=== PATIENT | male | born 1995 | race Caucasian/White ===

== ENCOUNTER 2017-06-12 09:25 | Emergency (ER) | payer OTHER ==
[~2017-06-12] VITALS: Ht 185.4 cm; Wt 62.8 kg
[2017-06-12 09:33] VITALS: BP 110/72
== END 2017-06-12 10:50 | disposition home or self-care (01) ==
LOC: ED 10:01
DX: J45.31 Mild persistent asthma with (acute) exacerbation (principal)
CPT/HCPCS: 71046; 99284

== ENCOUNTER 2017-11-15 11:48 | Emergency (ER) | payer SELFPAY ==
[~2017-11-15] VITALS: Ht 185.4 cm; Wt 64.2 kg
[2017-11-15 11:48] VITALS: BP 119/71
== END 2017-11-15 13:26 | disposition home or self-care (01) ==
LOC: ED 12:59
DX: M94.0 Chondrocostal junction syndrome [Tietze] (principal); J00 Acute nasopharyngitis [common cold]; M54.6 Pain in thoracic spine
CPT/HCPCS: 71046; 93005; 99283; 99284